=== PATIENT | male | born 1950 | race Caucasian/White ===

== ENCOUNTER 2020-05-07 08:43 | Emergency (ER) | payer MEDICARE, SELFPAY ==
[2020-05-07 08:51] LABS: Glucose Point of Care 174 (65-105)
[2020-05-07 09:10] VITALS: PULSE 34
[2020-05-07 09:28] VITALS: PULSE 57; O2SAT 90
--- NOTE | 2020-05-07 09:33 | PC.NURSE ---
labs sent [id number]
[2020-05-07 09:36] LABS: Basophils Absolute Auto 0.1 K/mm3 (0.0-0.1); Basophils Percent Auto 0.8 % (0.2-1.2); Eosinophils Absolute Auto 0.2 K/mm3 (0-0.3); Eosinophils Percent Auto 2.4 % (0-4.4); Hematocrit 53.3 % (42.0-52.0); Hemoglobin 16.1 g/dL (14.0-18.0); Immature Granulocyte Absolute 0.41 K/mm3 (0.00-0.031); Immature Granulocyte Percent A 6.6 % (0-0.5); Lymphocytes Absolute Auto 3.26 K/mm3 (0.9-3.2); Lymphocytes Percent Auto 52.7 % (18.3-44.2); Mean Corpuscular HGB Conc 30.2 g/dl (32-36); Mean Corpuscular Hemoglobin 29.8 pg (26-34); Mean Corpuscular Volume 98.5 fl (80-100); Mean Platelet Volume 10.7 fl (7.4-10.4); Monocytes Absolute Auto 0.3 K/mm3 (0.1-0.6); Monocytes Percent Auto 4.4 % (2.6-8.5); Neutrophils Absolute Auto 2.1 K/mm3 (1.3-6.7); Neutrophils Percent Auto 33.1 % (45.5-73.1); Nucleated Red Blood Cells Perc 0.3 % (0.0-0.2); Platelet Count Result 191 k/mm3 (150-375); Red Blood Count 5.41 M/mm3 (4.6-6.20); Red Cell Distribution Width 13.1 % (11.5-14.5); White Blood Count 6.2 K/mm3 (4.5-10.0)
[2020-05-07 09:39] LABS: Alveolar/Arterial O2 Gradient 548.8 mmHg; Base Excess ABG -25.8 mEq/l (+/-2.0); Carboxyhemoglobin 0.1 % THb (0-2.0); Fractional Inspired Oxygen 100 %; HCO3 ABG 11.5 mEq/l (22.0-26.0); Methemoglobin ABG 0.5 %THb (0-1.5); Oxyhemoglobin 81.2 % THb (90.0-100.0); PO2 ABG 79.7 mmHg (80.0-100.0); Reduced Hemoglobin 18.2 %THb (0-5.0); Total Hemoglobin 16.6 g/dL (12.0-18.0)
[2020-05-07 09:40] LABS: pH ABG 6.753 (7.350-7.450)
[2020-05-07 09:41] LABS: Device VENTILATOR; Oxygen Saturation ABG 77.8 % (95.0-100.0); PCO2 ABG 84.5 mmHg (35.0-45.0); Site Drawn LEFT BRACHIAL
[2020-05-07 09:43] LABS: Arterial Blood Gas PEEP 5 cmH2O; Arterial Blood Gas Pressure Support 0 cmH2O; Arterial Blood Gas Tidal Volume 440 ml; Arterial Blood Gas Vent Mode CMV; Arterial Blood Gas Ventilator rate 18 /MIN
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
[2020-05-07 09:53] LABS: INR 1.7; Prothrombin Time 19.2 Seconds (11.1-14.7)
[2020-05-07 09:54] LABS: Partial Thromboplastin Time 52.2 SECONDS (22.3-36.8)
--- NOTE | 2020-05-07 10:17 | ECG_ITS ---
Measurements Intervals [place] Rate: 41 P: 60 SD: 145 QRS: 83 QRSD: 141 T: 33 QT: 498 QTc: 414 Interpretive Statements ATRIAL FIBRILLATION WITH SLOW VENTRICULAR RESPONSE INTRAVENTRICULAR CONDUCTION DELAY ST-T WAVE ABNORMALITY IN ANTEROLATERAL LEADS- CONSIDER ISCHEMIA BASELINE WANDER- I, II, III, AVR, AVL, AVF, V3-V6 ABNORMAL ECG Electronically Signed On 05-07-2020 10:37:21 CDT by Linden Allison D.O.
--- NOTE | 2020-05-07 10:33 | PC.NURSE ---
pt arrived 0841 by julian ems ems outbound 0805 last ems epi 0840 pt received epi x5 by ems BG 177 RHYTHM CHECKS 0845 PEA 0847 PEA 0851 HAS FEMORAL PULSE 0859 NO PULSE NOTED, CPR INITIATED. 0905 CARDIAC ACTIVITY NOTED VIA US MEDS EPI 0842 0845 0850 0859 ATROPINE 0853 0857 BICARB 0912 VRBO TO START EPI DRIP STARTED AT [id number] LEVO STARTED AT [id number] ACCESS 20G RAC RIGHT FEMORAL CENTRAL LINE NG TO RIGHT NARE PLACED AT [address] ARRIVED WITH YARI IN PLACED INTUBATED BY DR BAEZ AT 0856 VS 0854 96.1 F 70 14 140/65 66% VS 0907 57/46 59 20 89% VS 0912 59 89% 20 50/39 vs 0918 53 98% [address] baez son stated to dc CPR pt noted to lose pulse 0940 time of at 0942, called by dr baez, with son in room
== END 2020-05-07 13:10 | disposition expired ==
PROVIDERS: Emergency Provider Emergency Medicine; PCP Family Medicine
DX: I46.9 Cardiac arrest, cause unspecified (principal); Z79.82 Long term (current) use of aspirin; J44.9 Chronic obstructive pulmonary disease, unspecified; Z85.828 Personal history of other malignant neoplasm of skin; I25.10 Atherosclerotic heart disease of native coronary artery without angina pectoris; E78.00 Pure hypercholesterolemia, unspecified; I11.9 Hypertensive heart disease without heart failure; Z87.891 Personal history of nicotine dependence; I48.91 Unspecified atrial fibrillation; I45.9 Conduction disorder, unspecified; R94.31 Abnormal electrocardiogram [ECG] [EKG]
CPT/HCPCS: 31500; 36415; 36556; 36600; 82375; 82805; 83050; 85025; 85610; 85730; 92950; 93005; 96374; 99285; C1751; J7060